=== PATIENT | male | born 2005 | race Caucasian/White ===

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

== ENCOUNTER 2025-04-26 11:10 | Emergency (ER) | payer BC, SELFPAY ==
[2025-04-26 11:23] VITALS: BP 119/66; PULSE 53; RESP 18; TEMP 35.7; O2SAT 100
[2025-04-26] MEDS: TETANUS,DIPHTHERIA,AC PERTUSSIS ADULT (0.5 ML) BOOSTRIX IM (11:29)
--- NOTE | 2025-04-26 11:35 | ED.SKABFB ---
HPI - Skin/Abscess/Foreign Bdy General Chief complaint: Skin/Abscess/Foreign Body Stated complaint: step on nail Time Seen by Provider: 04/26/25 11:15 Source: patient and RN notes reviewed Mode of arrival: ambulatory Limitations: no limitations History of Present Illness HPI narrative: 19-year-old male presents Express Care complaining of puncture wound to left foot. Patient said 2 days ago he was help clean his uncle shop when he accidentally stepped on a nail that went through his boot into his foot. Patient denies any retained foreign body or any other injuries. Patient is here today as he says his tetanus is not up-to-date. Patient says he received all his childhood vaccinations as scheduled. Patient says his mother told him his tetanus has not been updated over the last 10 years. Patient is any redness, swelling, fevers, drainage of ice, chills, nausea vomiting or any other symptoms. Patient reports mild pain in the puncture wound. Patient is able to bear weight on his left foot with mild discomfort. Related Data Home Medications ?Medication ?Instructions ?Recorded ?Confirmed ?Last Taken ?Type doxycycline hyclate 100 mg capsule mg 04/26/25 Unknown History Allergies Allergy/AdvReac Type Severity Reaction Status Date / Time No Known Allergies Allergy Verified 04/26/25 11:13 Review of Systems Review of Systems: CONSTITUTIONAL: Denies fever, chills, or sweats. EYES: Denies visual changes, redness, or discharge. ENT: Denies rhinorrhea, congestion, sore throat, or otalgia. CARDIOVASCULAR: Denies chest pain, palpitations, or edema. RESPIRATORY: Denies cough or dyspnea. GASTROINTESTINAL: Denies abdominal pain, nausea, vomiting, or diarrhea. GENITOURINARY: Denies dysuria or hematuria. SKIN: Denies rash or itching. Positive for wound. MUSCULOSKELETAL: Denies back pain, joint pain, or myalgia. NEUROLOGIC: Denies headache, numbness, or weakness. PSYCHIATRIC: Denies anxiety or depression. All other systems reviewed are negative, except as documented in HPI. PMFSH Comments At the time of my signature, I reviewed and agree with the nursing past medical, surgical, social, and family history. There is no relevant family history pertinent to the patient complaint. Exam Narrative: GENERAL: This is a well-nourished, well-developed adult, in no apparent distress. They are non ill-appearing, nontoxic appearing. HEAD: normocephalic, atraumatic. EYES: Sclera clear/white. Conjunctiva normal. Vision is grossly intact. Extraocular movements intact EARS: External ears normal, auditory canals clear and without drainage, TMs normal without perforation. Hearing grossly intact. NOSE: External nose normal with no obvious nasal discharge, nasal turbinates without redness, no rhinorrhea. THROAT: Mucous membranes moist, posterior pharynx clear, without erythema or swelling. Uvula midline. NECK: Neck supple, non-tender without lymphadenopathy, masses or thyromegaly. CARDIOVASCULAR: Regular rate and rhythm without murmurs, gallops, or rubs. RESPIRATORY: Respiratory rate normal, respiratory effort nonlabored, no respiratory distress SKIN: Left foot: No bruising, redness, swelling, deformity. Small puncture wound to the plantar surface of the forefoot in between the 1st and 2nd digit. It is approximately less than 0.25 cm. No erythema, no swelling. Mild tenderness to palpation. No exudate, no induration, no area of fluctuance. No retained foreign body. No bony tenderness. Left pedal pulse 2 +and palpable. Patient able to wiggle his toes. Sensation intact. Capillary refill less than 2 seconds. Normal range of motion. Neurovascular status intact distal injury. NEURO: awake, alert, and oriented to person, place and time. There were no obvious focal neurologic abnormalities. EXTREMITIES: No joint tenderness, effusion, or edema noted. BACK: Nontender without deformity. No CVA tenderness. Course Course Emergency Course: Portions of this record may have been created with voice recognition software Level of Care: Express Care Visit Vital Signs Vital signs: Vital Signs Temperature 96.3 F L 04/26/25 11:23 Pulse Rate 53 L 04/26/25 11:23 Respiratory Rate 18 04/26/25 11:23 Blood Pressure 119/66 04/26/25 11:23 Pulse Oximetry 100 04/26/25 11:23 Oxygen Delivery Room Air 04/26/25 11:23 Temperature 96.3 F L 04/26/25 11:23 Pulse Rate 53 L 04/26/25 11:23 Respiratory Rate 18 04/26/25 11:23 Blood Pressure 119/66 04/26/25 11:23 Pulse Oximetry 100 04/26/25 11:23 Oxygen Delivery Room Air 04/26/25 11:23 Reviewed MDM - Skin/Abscess/Foreign Bdy MDM Narrative Medical decision making narrative: Small puncture wound to left foot. No evidence of infection. No retained foreign body. No bony tenderness, or obvious injury, No imaging indicated. Likely patient's tetanus was updated in high school, however he states that it has not been updated last 10 years. Patient says his childhood vaccination status or up-to-date. Since patient is unsure will update patient's tetanus today. Discussed wound care. Discussed physical exam findings. Advised supportive measures and signs/symptoms to go to the ER. Pt is appropriate for outpt treatment and f/u. Differential Diagnosis Differential diagnosis: Likely cellulitis and other (Puncture wound, laceration, abrasion) Critical Care Time Critical Care Time Critical Care Time: No Discharge Plan Discharge Clinical Impression: Puncture wound of foot, left Qualifiers: Encounter type: initial encounter Qualified Code(s): S91.332A - Puncture wound without foreign body, left foot, initial encounter Patient Disposition: Home Condition: Stable Instructions: Diphtheria/Acellular Pertussis/Tetanus Booster Vaccine (By injection), Puncture Wound in the Foot (ED) Additional Instructions: Wash the wound do mild soap and water. Do not soak or scrub the wound. Do not use peroxide. Keep the wound dry and covered, you may apply non adherent dressing such as a Band-Aid to cover it. Change dressing daily or if it is visibly soy old Avoid dirty water until the wound has healed completely. Your tetanus is updated today. Follow-up with your PCP in 5-7 days. If you develops any worsening redness, swelling, pain, green/L drainage, fevers, body aches, chills, nausea vomiting, or any serious concerns please go to the ER immediately. Patient Language: Australian Prescriptions: No Action doxycycline hyclate 100 mg capsule Follow-up/Referrals: UNKNOWN,DOCTOR [Primary Care Provider] Time of Disposition: 11:32
== END 2025-04-26 11:45 | disposition home or self-care (01) ==
DX: S91.332A Puncture wound without foreign body, left foot, initial encounter (principal); W45.0XXA Nail entering through skin, initial encounter; Z23 Encounter for immunization
CPT/HCPCS: 90471; 90715; 99212; G0463